=== PATIENT | female | born 1970 | race African-American/Black ===

== ENCOUNTER → 2017-03-31 | Outpatient (CLI) | payer MEDICAID ==
--- NOTE | 2017-03-31 15:14 | RADIOLOGY REPORT (SQ) ---
EXAM DESCRIPTION: KNEE LEFT 4 VIEWS COMPLETED DATE/TIME: 03/31/2017 2:23 pm REASON FOR STUDY: ACHILLES TENDINITIS, LEFT LEG,PAIN IN LEFT KNEE M76.62 ACHILLES TENDINITIS, LEFT LEG M25.562 PAIN IN LEFT KNEE COMPARISON: 11/30/2013 NUMBER OF VIEWS: Four views. TECHNIQUE: AP, lateral, and both oblique radiographic images acquired of the left knee. LIMITATIONS: None. FINDINGS: MINERALIZATION: Normal. BONES: No acute fracture or dislocation. No worrisome bone lesions. Stable enthesopathy at the inse rtion of the quadriceps tendon. JOINT: Stable degree of osteoarthritis predominately affecting the patellofemoral and medial tibiofem oral compartments. No significant joint effusion. SOFT TISSUES: No soft tissue swelling. No radio-opaque foreign body. OTHER: No other significant finding. IMPRESSION: NO RADIOGRAPHIC EVIDENCE OF ACUTE INJURY. NO SIGNIFICANT CHANGE FROM PRIOR STUDY TECHNICAL DOCUMENTATION: JOB ID: [id number] [employer]- All Rights Reserved
--- NOTE | 2017-03-31 15:26 | RADIOLOGY REPORT (SQ) ---
EXAM DESCRIPTION: OS CALCIS/HEEL LEFT COMPLETED DATE/TIME: 03/31/2017 2:21 pm REASON FOR STUDY: ACHILLES TENDINITIS M76.62 ACHILLES TENDINITIS, LEFT LEG M25.562 PAIN IN LEFT KN EE COMPARISON: None. NUMBER OF VIEWS: Two views. TECHNIQUE: Plantar and oblique radiographic images acquired of the left calcaneous. LIMITATIONS: None. FINDINGS: MINERALIZATION: Normal. BONES: No acute fracture or dislocation. No worrisome bone lesions. Enthesopathy at the insertion o f the Achilles tendon. JOINTS: No effusions. SOFT TISSUES: No soft tissue swelling. No foreign body. OTHER: No other significant finding. IMPRESSION: ENTHESOPATHY AT THE INSERTION OF THE ACHILLES TENDON COMPATIBLE WITH CHRONIC TENDINOSIS. NO ACUTE OSSEOUS ABNORMALITY. TECHNICAL DOCUMENTATION: JOB ID: [id number] [employer]- All Rights Reserved
== END ==
LOC: OD 13:30
PROVIDERS: ATTEND Nurse Practitioner Acute Care
DX: M76.62 Achilles tendinitis, left leg (principal); M25.562 Pain in left knee

== ENCOUNTER 2017-05-20 06:03 | Day surgery (SDC) | payer MEDICAID ==
[2017-05-13 11:28] LABS: APPEARANCE,URINE CLEAR; BILIRUBIN,URINE NEGATIVE (NEGATIVE); GLUCOSE, URINE NEGATIVE (NEGATIVE); KETONES,URINE NEGATIVE (NEGATIVE); LEUKOCYTE ESTERASE,URINE NEGATIVE (NEGATIVE); NITRITE,URINE NEGATIVE (NEGATIVE); PROTEIN,URINE NEGATIVE (NEGATIVE); URINE SPECIFIC GRAVITY 1.021; UROBILINOGEN,URINE NEGATIVE mg/dL (<2.0)
[2017-05-13 11:29] LABS: HEMATOCRIT 37.8 % (36.0-47.0); HEMOGLOBIN 13.2 g/dL (12.0-15.5); HGB HCT DIFFERENCE 1.8; MEAN CORPUSCULAR HEMOGLOBIN 30.1 pg (27.0-33.4); MEAN CORPUSCULAR VOLUME 86 fl (80-97); RED BLOOD COUNT 4.39 10^6/uL (3.72-5.28); RED CELL DISTRIBUTION WIDTH 13.7 % (11.5-14.0)
[~2017-05-20 06:03] MED LIST: RINGERS SOLUTION,LACTATED 1,000 ML IV PRN
[2017-05-20] MEDS ORDERED: FENTANYL CITRATE INJ/PF 100 MCG/2 ML AMPUL ONE (08:35)
[2017-05-20] MEDS ORDERED: ONDANSETRON HCL INJ/PF 4 MG/2 ML SDV ONE (08:36)
[2017-05-20] MEDS ORDERED: MIDAZOLAM 2 MG/2 ML INJ ONE (08:36)
[2017-05-20] MEDS ORDERED: DEXAMETHASONE SOD PHOSPHATE INJ 4 MG/1 ML VIAL ONE (08:36)
[2017-05-20] MEDS ORDERED: ACETAMINOPHEN 100 ML IV ONE (08:36)
[2017-05-20] MEDS ORDERED: PROPOFOL INJ 200 MG/20 ML VIAL IV ONE (08:36)
[2017-05-20] MEDS ORDERED: EPHEDRINE SULFATE INJ 50 MG/1 ML AMPULE ONE (09:28)
[2017-05-20] MEDS ORDERED: MORPHINE SULFATE 10 MG/ML INJ IV PRN (09:59)
[2017-05-20] MEDS ORDERED: PROMETHAZINE HCL INJ 25 MG/1 ML VIAL IV PRN ×2 (09:59)
[2017-05-20] MEDS ORDERED: MEPERIDINE HCL/PF INJ 25 MG/1 ML DISP.SYRIN IV PRN (09:59)
[2017-05-20] MEDS ORDERED: FENTANYL CITRATE INJ/PF 100 MCG/2 ML AMPUL IV PRN ×3 (09:59)
[2017-05-20] MEDS ORDERED: OXYCODONE-ACETAMINOPHEN 5-325 MG TABLET PO PRN ×4 (09:59→10:39)
[2017-05-20] MEDS ORDERED: DIPHENHYDRAMINE HCL 50 MG/ML VIAL IV PRN (09:59)
[2017-05-20] MEDS: FENTANYL CITRATE INJ/PF 100 MCG/2 ML AMPUL ONE ×2 (10:10→10:15)
[2017-05-20] MEDS ORDERED: IBUPROFEN INJ 800 MG/8 ML VIAL IV ONE (10:23)
--- NOTE | 2017-05-20 10:33 | OPERATIVE REPORT E ---
Operative Report NAME: MIKE OWEN : 1970 AGE: 46Y DATE OF SURGERY: 04/19/2017 ROOM: PREOPERATIVE DIAGNOSIS: ENDOMETRIOMA. POSTOPERATIVE DIAGNOSIS: ENDOMETRIOMA. PROCEDURE: Excision of endometrioma. SURGEON: JANNY MEADE M.D. ANESTHESIA: Baron Munoz MD, with general. FINDINGS: A 3 cm wide endometrioma in the left lateral aspect of the patient's scar. No fascial involvement. COMPLICATIONS: None. ESTIMATED BLOOD LOSS: 20 mL. SPECIMENS REMOVED: Endometrioma. PROCEDURE IN DETAIL: The patient was taken to the operating room, prepared and draped in a normal sterile fashion in a supine position. Under general anesthesia, a skin incision was begun. With using a #10 blade at the left lateral aspect of the scar and following the patient's scar, this was carried through to the most lateral edge. This was carried through to the underlying layer of the endometrioma until the endometrioma was palpable at it's deepest level. I continued with excision of the endometrioma using a #15 blade until I was able to free the superficial aspect of the mass, then amputated the mass using Bone scissors. I then changed gloves and copiously irrigated the incision well multiple times with irrigation and then changing gloves, I palpated the rest of the incision and found that there was no further evidence of hardened areas that were suspicious for residual endometrioma. I then closed the subcutaneous layer with a couple of areas of plain catgut to close space and then closed the skin with 4-0 Vicryl. Patient tolerated procedure well. Sponge, lap, and needle counts were correct x2, and the patient was taken to recovery in stable condition. DICTATING PHYSICIAN: JANNY MEADE M.D. [id number] PHY#: [id number] ID: [id number] JOB#: [id number] ACCT: [id number] cc:JANNY MEADE M.D. >
[2017-05-20] MEDS ORDERED: MORPHINE SULFATE 10 MG/ML INJ IM PRN (10:37)
[2017-05-20] MEDS ORDERED: RINGERS SOLUTION,LACTATED 1,000 ML IV PRN (10:37)
[2017-05-20] MEDS ORDERED: IBUPROFEN 800 MG TABLET PO PRN (10:38)
[2017-05-20 12:47] VITALS: BP 132/86
[2017-05-20] MEDS ORDERED: SUCCINYLCHOLINE CHLORIDE INJ 200 MG/10 ML VIAL ONE (13:27)
== END 2017-05-20 12:25 | disposition home or self-care (01) ==
LOC: OROUT 06:03
PROVIDERS: ATTEND Obstetrics & Gynecology
PROC: 0HB7XZZ Excision of Abdomen Skin, External Approach (ICD-10-PCS; principal; 2017-05-20 08:30)
DX: N80.6 Endometriosis in cutaneous scar (principal); J45.909 Unspecified asthma, uncomplicated; F17.210 Nicotine dependence, cigarettes, uncomplicated
CPT/HCPCS: 36415; 85027; 81001; 88305 ×2; 11403; J2250; J1100; J3490; J3010; J0330; J2405; J2704; J0131; J1741; 840

== ENCOUNTER → 2017-11-05 | Outpatient (CLI) | payer MEDICAID ==
--- NOTE | 2017-11-05 18:15 | RADIOLOGY REPORT (SQ) ---
EXAM DESCRIPTION: FOOT RIGHT COMPLETE COMPLETED DATE/TIME: 11/05/2017 6:06 pm REASON FOR STUDY: RIGHT FOOT PAIN COMPARISON: None. NUMBER OF VIEWS: Three views. TECHNIQUE: AP, lateral and oblique radiographic images acquired of the right foot. LIMITATIONS: None. FINDINGS: MINERALIZATION: Normal. BONES: No fracture or dislocation. There is a very prominent dorsal calcaneal spur and there is a sm all plantar calcaneal spur are. JOINTS: No effusions. SOFT TISSUES: No soft tissue swelling. No foreign body. OTHER: No other significant finding. IMPRESSION: Calcaneal spurs. TECHNICAL DOCUMENTATION: JOB ID: [id number] [employer]- All Rights Reserved Reading location - IP/workstation name: [email or web address]
== END ==
LOC: RAD 17:35
PROVIDERS: ATTEND Nurse Practitioner Family
DX: M79.671 Pain in right foot (principal); M77.31 Calcaneal spur, right foot

== ENCOUNTER 2017-11-12 09:23 | Emergency (ER) | payer MEDICAID ==
[2017-11-12 09:29] VITALS: BP 147/79
[2017-11-12] MEDS ORDERED: PENICILLIN V POTASSIUM 500 MG TABLET PO ONE (09:42)
[2017-11-12] MEDS ORDERED: LIDOCAINE 2% VISCOUS SOLN 20 ML UDCUP PO ONE (09:42)
--- NOTE | 2017-11-12 09:49 | ER Document Report ---
ED Oral Problem - General Chief Complaint: Toothache Stated Complaint: MOUTH PAIN Time Seen by Provider: 11/12/17 09:34 Mode of Arrival: Ambulatory Information source: Patient Notes: 46-year-old female presents to ED for right-sided dental pain tooth #4. She states that it started hurting real bad about 4 days ago it is her before that but never like this bad. She denies any allergies to medication. She states she has Medicaid and does not have a dentist. She states this tooth has had a root Canal in the past. Patient is alert oriented pupils equal and react to light, speaks in full sentences, respirations regular and unlabored, and walks with a steady gait. TRAVEL OUTSIDE OF THE [place] IN LAST 30 DAYS: No - HPI Patient complains to provider of: Toothache Onset: Other - 4 days this time Onset: Gradual Quality of pain: Sharp, Throbbing Severity: Severe Pain Level: 5 Associated symptoms: Toothache Worsened by: Cold Relieved by: Nothing Similar symptoms previously: Yes Recently seen / treated by doctor/dentist: No - Related Data Allergies/Adverse Reactions: No Known Allergies Allergy (Verified 11/12/17 09:24) Past Medical History - General Information source: Patient - Social History Smoking Status: Current Every Day Smoker Cigarette use (# per day): Yes Chew tobacco use (# tins/day): No Smoking Education Provided: Yes - 4 minutes Frequency of alcohol use: Occasional Drug Abuse: None Occupation: [employer] Lives with: Parents Family History: Reviewed & Not Pertinent Patient has suicidal ideation: No Patient has homicidal ideation: No - Medical History Medical History: Other - Past Medical History Cardiac Medical History: Reports: None Pulmonary Medical History: Reports: Hx Asthma EENT Medical History: Reports: None Neurological Medical History: Reports: None Endocrine Medical History: Reports: None Renal/ Medical History: Reports: None Malignancy Medical History: Reports: None GI Medical History: Reports: None Musculoskeltal Medical History: Reports Hx Arthritis Skin Medical History: Reports None Psychiatric Medical History: Reports: None Traumatic Medical History: Reports: None Past Surgical History: Reports: Hx Gynecologic Surgery - uterine tumor removal - Immunizations Hx Diphtheria, Pertussis, Tetanus Vaccination: Yes Review of Systems - Review of Systems Constitutional: No symptoms reported EENT: Dental problem Cardiovascular: No symptoms reported Respiratory: No symptoms reported Gastrointestinal: No symptoms reported Genitourinary: No symptoms reported Female Genitourinary: No symptoms reported Musculoskeletal: No symptoms reported Skin: No symptoms reported Hematologic/Lymphatic: No symptoms reported Neurological/Psychological: No symptoms reported Physical Exam - Vital signs Vitals: Temp Pulse Resp BP Pulse Ox 98.7 F 69 22 H 147/79 H 99 11/12/17 09:28 11/12/17 09:28 11/12/17 09:28 11/12/17 09:28 11/12/17 09:28 Interpretation: Normal - General General appearance: Appears well, Alert - HEENT Head: Normocephalic, Atraumatic Eyes: Normal Pupils: PERRL Ears: Normal External canal: Normal Tympanic membrane: Normal Sinus: Normal Nasal: Normal Mouth/Lips: Caries Mucous membranes: Normal Teeth diagram: 1 - Area at the bottom of the tooth black. Patient states she has had a root canal with a cap. Patient states has had pain in this tooth before but not as bad as it is right now she states this pain is been for the last 4 days. She states she has not been to a dentist about at this time. - Respiratory Respiratory status: No respiratory distress Chest status: Nontender Breath sounds: Normal Chest palpation: Normal - Cardiovascular Rhythm: Regular Heart sounds: Normal auscultation Murmur: No - Abdominal Inspection: Normal Distension: No distension Bowel sounds: Normal Tenderness: Nontender Organomegaly: No organomegaly - Back Back: Normal, Nontender - Extremities General upper extremity: Normal inspection, Nontender, Normal color, Normal ROM , Normal temperature General lower extremity: Normal inspection, Nontender, Normal color, Normal ROM , Normal temperature, Normal weight bearing. No: Patricia's sign - Neurological Neuro grossly intact: Yes Cognition: Normal Orientation: AAOx4 Ashish Coma Scale Eye Opening: Spontaneous Ashish Coma Scale Verbal: Oriented [place] Coma Scale Motor: Obeys Commands Ashish Coma Scale Total: 15 Speech: Normal Motor strength normal: LUE, RUE, LLE, RLE Sensory: Normal - Psychological Associated symptoms: Normal affect, Normal mood - Skin Skin Temperature: Warm Skin Moisture: Dry Skin Color: Normal Course - Re-evaluation Re-evalutation: 11/12/17 10:00 She was treated with Penicillin VK and viscous lidocaine for the discomfort. Patient was given instructions to put a small amount of the viscous lidocaine to the tooth and the gums surrounding the tooth and to be aware that it can cause some numbness to the tongue. Patient was also encouraged to gargle with warm salt and soda solution. Patient to follow-up with the dentist. After performing a Medical Screening Examination, I estimate there is LOW risk for a DEEP SPACE INFECTION (e.g., DAPHNE'S ANGINA OR RETROPHARYNGEAL ABSCESS), MENINGITIS, INTRACRANIAL HEMORRHAGE, or AIRWAY COMPROMISE, thus I consider the discharge disposition reasonable. Also, there is no evidence or peritonitis, sepsis, or toxicity. I have reevaluated this patient multiple times and no significant life threatening changes are noted. The patient and I have discussed the diagnosis and risks, and we agree with discharging home with close follow-up with the understanding that symptoms and presentations can change. We also discussed returning to the Emergency Department immediately if new or worsening symptoms occur. We have discussed the symptoms which are most concerning (e.g., changing or worsening pain, trouble swallowing or breathing, neck stiffness or fever) that necessitate immediate return. - Vital Signs Vital signs: Temp Pulse Resp BP Pulse Ox 98.7 F 69 22 H 147/79 H 99 11/12/17 09:28 11/12/17 09:28 11/12/17 09:28 11/12/17 09:28 11/12/17 09:28 Discharge - Discharge Clinical Impression: Pain due to dental caries HTN (hypertension) Qualifiers: Hypertension type: unspecified Qualified Code(s): I10 - Essential (primary) hypertension Condition: Stable Disposition: HOME, SELF-CARE Instructions: Dentist Additional Instructions: TOOTHACHE: Your pain is due to dental decay. The tooth must be repaired in order for you to feel better. You will, therefore, be referred to a dentist. We do not have dentists on the staff at [facility]. Severe swelling or drainage around a tooth usually means a dental abscess. This also requires evaluation and treatment by the dentist, but antibiotics may be prescribed while awaiting dental treatment. You should be rechecked immediately if you develop major swelling of the face, increasing pain, a lump in the jaw or gums, headache, difficulty swallowing, or fever. PENICILLIN V K: You have been given a prescription for Penicillin VK. Your physician has determined that this is the best antibiotic for your condition. Pen VK can be taken with meals, however more of the antibiotic gets into the bloodstream if it's taken on an empty stomach. Penicillin usually has no side effects. However, allergy to penicillins is common. If you have had an allergic reaction to any drug of the penicillin family, you should never take any other penicillin. Notify your doctor at once if you develop hives, itching, swelling, faintness, or shortness of breath. You should try gargling with warm salt and soda water for the pain and use the viscous lidocaine that I have provided in the syringe put a small amount on your finger and apply it to the tooth and gums surrounding the tooth. Salt and soda solution 1 quart of water 1 tablespoon of salt 1 teaspoon of baking soda Mixed 3 ingredients together and boil for 1 minute Placed in a covered quart jar Use 1/2 ounce of cold solution to gargle 3 times a day FOLLOW-UP CARE: You have been referred for follow-up care to the dentists listed below. Call the dentists office for an appointment as you were instructed or within the next two days. If you experience worsening or a significant change in your symptoms, notify the physician immediately or return to the Emergency Department at any time for re-evaluation. [facility] [address] [place], [place] [facility] [address] [place] [address] [facility] [address] [facility] [address] [facility] [address] [facility] [place] [facility] [address] [email or web address] [address] [address] Friday- 8:00am to 5:00 pm Will see patients from other [facility]. Charges based on income and family size and accepts Medicare, Medicaid, and Insurances Will pull molars [facility] [id number] Hours of Operation 8:00 am - 4:30 pm weekdays The following dental offices accept Medicaid: [facility] [address] [address]. Tejeda Dr. Choi David Stewart, [facility]lysa, and [facility] oral surgery Dr. Troncoso ([place]) Dr. Quick ([place]) [facility] Drs. Hernandez ([place]) Dr. Pickett ([place]) [facility] Dr. Wade ([place]) Drs. Vinson and ([place]) Medicaid Care Line Prescriptions: Penicillin V Potassium [Penicillin Vk 500 mg Tablet] 500 mg PO BID #20 tablet Forms: Elevated Blood Pressure, Smoking Cessation Education Referrals: STEVE RAMON MD [Primary Care Provider] - Follow up as needed
== END 2017-11-12 09:52 | disposition home or self-care (01) ==
LOC: ER 09:23
DX: K08.89 Other specified disorders of teeth and supporting structures (principal); K02.9 Dental caries, unspecified; I10 Essential (primary) hypertension; F17.210 Nicotine dependence, cigarettes, uncomplicated; J45.909 Unspecified asthma, uncomplicated
CPT/HCPCS: 99282; J3490 ×2

== ENCOUNTER → 2018-05-26 | Outpatient (CLI) | payer MEDICAID ==
--- NOTE | 2018-05-26 15:24 | WOMENS IMAGING REPORT ---
EXAM DESCRIPTION: BILAT SCREENING MAMMO W/CAD COMPLETED DATE/TIME: 05/26/2018 3:15 pm REASON FOR STUDY: SCREENING MAMMO Z12.31 ENCNTR SCREEN MAMMOGRAM FOR MALIGNANT NEOPLASM OF LEAH COMPARISON: 02/22/2014 TECHNIQUE: Standard craniocaudal and mediolateral oblique views of each breast recorded using digita l acquisition. LIMITATIONS: None. FINDINGS: No masses, calcifications or architectural distortion. No areas of suspicion. Read with the assistance of CAD. .[facility] - R2 Cenova Version 1.3 .[facility] - R2 Cenova Version 1.3 .[facility] - R2 Cenova Version 2.4 .[facility] - R2 Cenova Version 2.4 .[facility] - R2 Outside B2B Sales Version 9.2 IMPRESSION: NORMAL MAMMOGRAM. BIRADS 1. BREAST DENSITY: c. The breasts are heterogeneously dense, which may obscure small masses. BIRAD: 1 NEGATIVE RECOMMENDATION: ROUTINE SCREENING Please continue yearly bilateral screening mammography/tomosynthesis in April 2019 COMMENT: The patient has been notified of the results by letter per SA requirements. Additional no tification policies are in place for contacting patient with suspicious or incomplete findings. Quality ID #[id number]: The [employer] recommends an annual screening mammogram for women aged 40 years or over. This facility utilizes a reminder system to ensure that all patients receive reminder letters, and/or direct phone calls for appointments. This includes reminders for routine scr eening mammograms, diagnostic mammograms, or other Breast Imaging Interventions when appropriate. Th is patient will be placed in the appropriate reminder system. The [employer] (ACR) has developed recommendations for screening MRI of the breast s in certain patient populations, to be used in conjunction with mammography. Breast MRI surveillanc e may be appropriate for women with more than 20% lifetime risk of developing breast cancer as deter mined by genetic testing, significant family history of the disease, or history of mantle radiation f or Hodgkins Disease. ACR Practice Guidelines 2008. TECHNICAL DOCUMENTATION: FINDING NUMBER: (1) ASSESSMENT: (1) JOB ID: [id number] [employer]- All Rights Reserved Reading location - IP/workstation name: [email or web address]
== END ==
LOC: WI 13:49
PROVIDERS: ATTEND Family Medicine
DX: Z12.31 Encounter for screening mammogram for malignant neoplasm of breast (principal)
CPT/HCPCS: 77067

== ENCOUNTER → 2018-12-10 | Outpatient (CLI) | payer MEDICAID ==
--- NOTE | 2018-12-10 13:58 | RADIOLOGY REPORT (SQ) ---
EXAM DESCRIPTION: KNEE LEFT 3 VIEWS COMPLETED DATE/TIME: 12/10/2018 11:37 am REASON FOR STUDY: PAIN IN LEFT KNEE M25.562 PAIN IN LEFT KNEE COMPARISON: None. NUMBER OF VIEWS: Three views. TECHNIQUE: AP, lateral, and sunrise patella radiographic images acquired of the left knee. LIMITATIONS: None. FINDINGS: MINERALIZATION: Normal. BONES: No acute fracture or dislocation. No worrisome bone lesions. JOINT: No effusion. Posterior patellar and trochlear osteophytes are present. SOFT TISSUES: No soft tissue swelling. No radio-opaque foreign body. OTHER: No other significant finding. IMPRESSION: Patellofemoral degenerative joint changes. TECHNICAL DOCUMENTATION: JOB ID: [id number] [employer]- All Rights Reserved Reading location - IP/workstation name: [email or web address]
== END ==
LOC: OD 11:14
PROVIDERS: ATTEND Nurse Practitioner Family
DX: M17.12 Unilateral primary osteoarthritis, left knee (principal); M25.562 Pain in left knee

== ENCOUNTER 2020-01-12 09:24 | Emergency (ER) | payer MEDICAID ==
[2020-01-12] MEDS ORDERED: KETOROLAC TROMETHAMINE INJ/PF 30 MG/1 ML SDV IV ONE (10:38)
--- NOTE | 2020-01-12 10:38 | ER Document Report ---
ED General - General Chief Complaint: Low Back Pain Stated Complaint: BACK PAIN Time Seen by Provider: 01/12/20 10:14 Primary Care Provider: GRACY JIANG FNP-C [Primary Care Provider] - Follow up as needed Notes: HPI: Patient is a 49-year-old female with past medical history as recorded including gastric sleeve surgery performed 21 days ago who presents today after awoke with some left lower back pain radiating to the left lateral leg. She denies any radiation to the abdomen. She states worse with movement as well as deep breaths. She denies any fevers, vomiting, incontinence, dysuria, or weakness of the legs. History of the back strain in the past. She denies any cough, shortness of breath, or chest pain. ROS: See HPI All other review of systems reviewed and otherwise negative Reviewed vital signs and nursing note as charted by RN. PHYSICAL EXAM: CONSTITUTIONAL: Alert and oriented and responds appropriately to questions. Well-appearing; well-nourished HEAD: Normocephalic; atraumatic CARD: Regular rate and rhythm; no murmurs; symmetric distal pulses RESP: Normal chest excursion without splinting or tachypnea; breath sounds clear and equal bilaterally; no wheezes, no rhonchi, no rales ABD/GI: Normal bowel sounds; elevated BMI; nontender; no palpable organomegaly or masses BACK: The back appears normal and is non-tender to palpation along the midline spine with no swelling, erythema, induration, or step-offs. Patient has point tenderness to the left paraspinal muscular region without any swelling or erythema EXT: Normal ROM in all joints; non-tender to palpation; no edema SKIN: No acute lesions noted NEURO: CN 2-12 intact; 5/5 bilateral upper and lower extremity strength with sensation intact to light touch; normal patellar reflexes bilaterally PSYCH: The patient's mood and manner are appropriate. Grooming and personal hygiene are appropriate. TRAVEL OUTSIDE OF THE [place] IN LAST 30 DAYS: No - Related Data Allergies/Adverse Reactions: No Known Allergies Allergy (Verified 01/12/20 09:40) Past Medical History - Social History Smoking Status: Former Smoker Chew tobacco use (# tins/day): No Frequency of alcohol use: None Drug Abuse: None Family History: Reviewed & Not Pertinent Patient has homicidal ideation: No - Past Medical History Cardiac Medical History: Denies: Hx Coronary Artery Disease, Hx Heart Attack, Hx Hypertension Pulmonary Medical History: Reports: Hx Asthma Denies: Hx Bronchitis, Hx COPD, Hx Pneumonia Neurological Medical History: Denies: Hx Cerebrovascular Accident, Hx Seizures Renal/ Medical History: Reports: Hx Kidney Stones. Denies: Hx Peritoneal Dialysis Musculoskeletal Medical History: Reports Hx Arthritis Past Surgical History: Reports: Hx Abdominal Surgery - gastric sleeve, Hx Section - correction of c section scar, Hx Gynecologic Surgery - uterine tumor removal, Hx Hysterectomy - Immunizations Hx Diphtheria, Pertussis, Tetanus Vaccination: Yes Physical Exam - Vital signs Vitals: Temp Pulse Resp BP Pulse Ox 98.4 F 82 16 136/84 H 100 01/12/20 09:31 01/12/20 09:31 01/12/20 09:31 01/12/20 09:31 01/12/20 09:31 Course - Re-evaluation Re-evalutation: 01/12/20 10:37 Given the history and physical examination with the previously very large kidney stone requiring extraction, I will obtain a renal colic CT scan. Patient has point tenderness to the left lateral back with no tachycardia, hypoxia, cough, shortness of breath, or chest pain. I do believe PE to be unlikely. Patient has no weakness or numbness of the legs, fevers, incontinence. No midline tenderness or erythema. I do believe discitis, epidural abscess, osteomyelitis, spinal cord compression to be unlikely. 01/12/20 13:04 X-ray as recorded. Given the previous gastric sleeve with the pleuritic pain, with noncontrast CT as recorded, I will obtain a CT of the chest to evaluate the possibility of pulmonary embolism. I will provide a gram of Rocephin and azithromycin. 01/12/20 16:34 The radiologist called me after reviewing the CTA of the chest. He believes that there is some extraluminal gas between the spleen and the diaphragm. He is unsure whether this is a gastric sleeve abnormality. I did call the bariatric surgeon at [facility] and I have pushed the images over to him. He has reviewed the images. He would like to perform an evaluation of the patient himself. He has asked if we transfer the patient ER to ER. I have spoken to the transfer center who has accepted. Have spoken with the patient understands. - Vital Signs Vital signs: Temp Pulse Resp BP Pulse Ox 98.6 F 82 16 136/84 H 100 01/12/20 09:40 01/12/20 09:31 01/12/20 09:31 01/12/20 09:31 01/12/20 09:31 - Laboratory Result Diagrams: 01/12/20 11:04 01/12/20 11:04 Laboratory results interpreted by me: 01/12/20 10:18 Urine Protein 30 H Urine Ketones 80 H Urine Blood SMALL H Urine Bilirubin SMALL H Urine Urobilinogen 4.0 H Discharge - Discharge Clinical Impression: Left lower lobe pulmonary infiltrate, Left flank pain, Intra-abdominal free air of unknown etiology Condition: Fair Disposition: [facility] Referrals: GRACY JIANG FNP-C [Primary Care Provider] - Follow up as needed
[2020-01-12] MEDS ORDERED: IBUPROFEN 600 MG TABLET PO ONE (10:40)
[2020-01-12 10:46] LABS: APPEARANCE,URINE CLOUDY; BILIRUBIN,URINE SMALL (NEGATIVE); COLOR,URINE AMBER; GLUCOSE, URINE NEGATIVE (NEGATIVE); KETONES,URINE 80 mg/dL (NEGATIVE); LEUKOCYTE ESTERASE,URINE NEGATIVE (NEGATIVE); NITRITE,URINE NEGATIVE (NEGATIVE); PROTEIN,URINE 30 mg/dL (NEGATIVE); URINE SPECIFIC GRAVITY 1.034
--- NOTE | 2020-01-12 10:58 | RADIOLOGY REPORT (SQ) ---
EXAM DESCRIPTION: CT ABD/PELVIS NO ORAL OR IV IMAGES COMPLETED DATE/TIME: 01/12/2020 10:47 am REASON FOR STUDY: 4; left flank pain COMPARISON: None. TECHNIQUE: CT scan of the abdomen and pelvis performed without intravenous or oral contrast. Images reviewed with lung, soft tissue, and bone windows. Reconstructed coronal and sagittal MPR images revi ewed. All images stored on PACS. All CT scanners at this facility use dose modulation, iterative reconstruction, and/or weight based d osing when appropriate to reduce radiation dose to as low as reasonably achievable (ALARA). [facility]: Dose Right [facility]: CareDose [facility]: Dose Right [facility]: Teradose 4D [facility]: Smart HiperScan RADIATION DOSE: CT Rad equipment meets quality standard of care and radiation dose reduction techniq ues were employed. CTDIvol: 17.5 mGy. DLP: 942 mGy-cm.mGy. LIMITATIONS: None. FINDINGS: LOWER CHEST: There is dense left lower lobe consolidation and left pleural effusion. This may account for the patient's clinical symptoms. NON-CONTRASTED LIVER, SPLEEN, ADRENALS: Evaluation limited by lack of IV contrast. No identified sign ificant masses. PANCREAS: No masses. No peripancreatic inflammatory changes. GALLBLADDER: Probable small layering stones and/or sludge. RIGHT KIDNEY AND URETER: No suspicious masses. Assessment limited by lack of IV contrast. No signif icant calcifications. No hydronephrosis or hydroureter. LEFT KIDNEY AND URETER: No suspicious masses. Assessment limited by lack of IV contrast. No signifi cant calcifications. No hydronephrosis or hydroureter. AORTA AND RETROPERITONEUM: No aneurysm. No retroperitoneal masses or adenopathy. BOWEL AND PERITONEAL CAVITY: Postsurgical changes in the epigastric region most likely related to kely or gastric bypass. No obstruction. No inflammatory changes. APPENDIX: Normal. PELVIS, BLADDER, AND ABDOMINAL WALL:Large umbilical hernia containing omental fat. The fat is and ae rated. BONES: No significant findings. OTHER: No other significant finding. IMPRESSION: 1. Large umbilical hernia containing omental fat. There is stranding in the herniated f at. This could represent omental infarction. 2. Focal dense consolidation in the left base with small effusion consistent with pneumonia. COMMENT: Quality ID # 436: Final reports with documentation of one or more dose reduction techniques (e.g., Automated exposure control, adjustment of the mA and/or kV according to patient size, use of iterative reconstruction technique) TECHNICAL DOCUMENTATION: JOB ID: [id number] 2010 [employer]- All Rights Reserved Reading location - IP/workstation name: [email or web address]
[2020-01-12] MEDS ORDERED: ACETAMINOPHEN 325 MG TABLET PO ONE (11:22)
[2020-01-12 11:38] LABS: ABSOLUTE LYMPHOCYTES (AUTO) 1.4 10^3/uL (0.5-4.7); ABSOLUTE MONOCYTES (AUTO) 0.8 10^3/uL (0.1-1.4); ABSOLUTE NEUT (AUTO) 4.6 10^3/uL (1.7-8.2); BASOPHILS % (AUTO) 0.4 % (0-2); EOSINOPHILS % (AUTO) 0.7 % (0-6); HEMATOCRIT 38.2 % (36.0-47.0); HEMOGLOBIN 13.2 g/dL (12.0-15.5); LYMPHOCYTES % (AUTO) 20.4 % (13-45); MEAN CORPUSCULAR HEMOGLOBIN 29.9 pg (27.0-33.4); MEAN CORPUSCULAR HGB CONC 34.5 g/dL (32.0-36.0); MEAN CORPUSCULAR VOLUME 87 fl (80-97); MONOCYTES % (AUTO) 11.1 % (3-13); PLATELET COUNT 435 10^3/uL (150-450); RED BLOOD COUNT 4.41 10^6/uL (3.72-5.28); RED CELL DISTRIBUTION WIDTH 13.8 % (11.5-14.0); SEGMENTED NEUTROPHILS % (AUTO) 67.4 % (42-78); TOTAL CELLS COUNTED % (AUTO) 100 %; WHITE BLOOD COUNT 6.8 10^3/uL (4.0-10.5)
[2020-01-12] MEDS ORDERED: NORMAL SALINE 1000 ML 1,000 ML IV ONE (11:47)
[2020-01-12 11:56] LABS: ANION GAP 13 (5-19); BLOOD UREA NITROGEN 10 mg/dL (7-20); CALCIUM 9.6 mg/dL (8.4-10.2); CARBON DIOXIDE 25 mmol/L (22-30); CHLORIDE 101 mmol/L (98-107); GLUCOSE 90 mg/dL (75-110); POTASSIUM 4.1 mmol/L (3.6-5.0)
[2020-01-12] MEDS ORDERED: CEFTRIAXONE 1 GM/D5W RTU 1 GM/50 ML RTUPB IV ONE ×2 (13:04→18:58)
[2020-01-12] MEDS ORDERED: AZITHROMYCIN INJ 500 MG VIAL IV ONE ×2 (13:04→18:58)
--- NOTE | 2020-01-12 16:10 | RADIOLOGY REPORT (SQ) ---
EXAM DESCRIPTION: CTA CHEST IMAGES COMPLETED DATE/TIME: 01/12/2020 3:41 pm REASON FOR STUDY: 4; eval left lower lobe infiltrate COMPARISON: None. TECHNIQUE: CT scan of the chest performed using helical scanning technique with dynamic intravenous contrast injection. Images reviewed with lung, soft tissue and bone windows. Reconstructed coronal and sagittal MPR images reviewed. Additional 3 dimensional post-processing performed to develop Maximal Intensity Projection images (CO P). All images stored on PACS. All CT scanners at this facility use dose modulation, iterative reconstruction, and/or weight based d osing when appropriate to reduce radiation dose to as low as reasonably achievable (ALARA). [facility]: Dose Right [facility]: CareDose [facility]: Dose Right [facility]: Teradose 4D [facility]: Tru-[employer] CONTRAST TYPE AND DOSE: contrast/concentration: Isovue 350.00 mmol/ml; Total Contrast Delivered: 73. 0 ml; Total Saline Delivered: 49.4 ml 100 mL Omnipaque 350 Contrast bolus optimized for the pulmonary arteries. Not diagnostic for the aorta. RENAL FUNCTION: BUN 10, creatinine 0.67 RADIATION DOSE: CT Rad equipment meets quality standard of care and radiation dose reduction techniq ues were employed. CTDIvol: 13.2 - 28.8 mGy. DLP: 1018 mGy-cm. . LIMITATIONS: None. FINDINGS: LUNGS AND PLEURA: There is a small left effusion with left basilar airspace disease either atelectasis or pneumonia. AORTA AND GREAT VESSELS: No aneurysm. Contrast bolus not optimized for the aorta. HEART: No pericardial effusion. No significant coronary artery calcifications. PULMONARY ARTERIES: No emboli visualized in the main pulmonary arteries or the segmental branches. HILAR AND MEDIASTINAL STRUCTURES: No identified masses or abnormal nodes. HARDWARE: None in the chest. UPPER ABDOMEN: In the upper abdomen there are postsurgical changes. The patient had gastric sleeve p erformed 2 to 3 weeks ago. There is mild inflammation anterior to the spleen with some stranding in the fat along the left hemidiaphragm. Small pockets of extraluminal gas cannot be excluded. No free air beneath the diaphragms. THYROID AND OTHER SOFT TISSUES: No masses. No adenopathy. BONES: No acute or significant finding. 3D MIPS: Confirm above findings. OTHER: No other significant finding. IMPRESSION: 1. Left basilar dense atelectasis or pneumonia along with a small left pleural effusion. 2. Mild inflammatory changes are suspected in the left upper quadrant. This patient is status post gastric sleeve surgery 2 to 3 weeks ago based on history. There is some stranding in the fat along t he left hemidiaphragm and mild stranding anterior and superior to the left kidney and medial to the s pleen. Small pockets of extraluminal gas cannot be excluded. 3. No pulmonary emboli. COMMENT: This report was called to ZAINAB MCALLISTER MD at16:03 on 01/12/2020. Quality ID # [id number]: Final reports with documentation of one or more dose reduction techniques (e.g., Au tomated exposure control, adjustment of the mA and/or kV according to patient size, use of iterative reconstruction technique) TECHNICAL DOCUMENTATION: JOB ID: [id number] 2010 [email or web address]- All Rights Reserved Reading location - IP/workstation name: [email or web address]
[2020-01-12] MEDS ORDERED: FENTANYL CITRATE INJ/PF 100 MCG/2 ML AMPUL IV ONE (20:26)
[2020-01-12] MEDS ORDERED: ONDANSETRON HCL INJ/PF 4 MG/2 ML SDV IV ONE (20:27)
[2020-01-12 21:19] VITALS: BP 136/80
== END 2020-01-12 21:34 | disposition short-term general hospital (02) ==
LOC: ER 09:24
DX: M54.5 Low back pain (principal); R91.8 Other nonspecific abnormal finding of lung field; R07.81 Pleurodynia; R10.9 Unspecified abdominal pain; Z98.84 Bariatric surgery status; Z87.442 Personal history of urinary calculi
CPT/HCPCS: 99284; 96375; 96365; 96367; 36415; 85025; 80048; 81001; 71275; 74176; J3490; J3010; J2405; J7030; J0456; J0696